=== PATIENT | female | born 1950 | race Caucasian/White ===

== ENCOUNTER 2018-12-12 13:40 | Emergency (ER) | payer MEDICARE ==
[~2018-12-12] VITALS: Ht 165.1 cm; Wt 86.2 kg
[~2018-12-12 13:40] MED LIST: BENAZEPRIL HCL10 MG PO; CALTRATE 600+D1 EACH PO; LIPITOR PO; MULTIVITAMIN PO; PAXIL CR25 MG PO
[2018-12-12] MEDS ORDERED: TESSALON PERLE100 MG PO (13:58)
[2018-12-12] MEDS ORDERED: VENTOLIN HFA18 GM INH (13:58)
[2018-12-12] MEDS ORDERED: DOXYCYCLINE HY100 MG PO (13:58)
[2018-12-12] MEDS ORDERED: PREDNISONE20 MG PO (13:58)
[2018-12-12] MEDS ORDERED: ALBUTEROL/IPRATROPIUM 3 ML NEB NEB ONE (14:00)
--- NOTE | 2018-12-12 14:09 | Diagnostic Imaging Report ---
EXAMINATION: PA and lateral views of the chest. COMPARISON: None CLINICAL HISTORY: Cough and congestion x1 week DISCUSSION: Lines/tubes: None. Lungs: The lungs are well inflated and clear. There is no evidence of pneumonia or pulmonary edema. Pleura: There is no pleural effusion or pneumothorax. Heart and mediastinum: The cardiomediastinal silhouette is normal. Bones and soft tissues: No acute bony abnormalities. Degenerative changes in the thoracic spine IMPRESSION: No acute cardiopulmonary abnormalities. Signed by: Dr. Giorgio Damon M.D. on 12/12/2018 2:06 PM
== END 2018-12-12 14:36 | disposition home or self-care (01) ==
LOC: FSED 13:40
DX: R05 Cough (principal); J20.9 Acute bronchitis, unspecified
CPT/HCPCS: 71046; 99283

== ENCOUNTER → 2019-07-31 | Outpatient (CLI) | payer MEDICARE ==
[~2019-07-31] MED LIST changes: +DOXYCYCLINE HY100 MG PO; +PREDNISONE20 MG PO; +TESSALON PERLE100 MG PO; +VENTOLIN HFA18 GM INH
--- NOTE | 2019-08-01 09:38 | Diagnostic Imaging Report ---
EXAMINATION: HIP RIGHT 2-3 VW (+/- PELVIS) INDICATION: Right hip pain COMPARISON: None FINDINGS: AP and frog-leg views of the right hip demonstrate no acute fracture or dislocation. Mild degenerative changes of the right hip joint. IMPRESSION: No acute osseous injury. Mild right hip degenerative changes. Signed by: Mary Gibbs MD on 08/01/2019 9:35 AM
--- NOTE | 2019-08-01 09:40 | Diagnostic Imaging Report ---
EXAMINATION: SP LUMBAR, COMPLETE MIN 4VW INDICATION: Back pain COMPARISON: None FINDINGS: AP, lateral, and oblique images of the lumbar spine were obtained. No compression fracture. Vertebral body heights are well maintained. Grade 1 anterolisthesis at L5-S1. Grade 1 retrolisthesis at L2-3. Mild multilevel degenerative changes with disc space narrowing and small osteophyte formation and facet arthropathy. Nonobstructive bowel gas pattern. No free air. Phleboliths in the pelvis. IMPRESSION: No compression fracture. Mild multilevel degenerative changes and alignment abnormalities as above. Signed by: Mary Gibbs MD on 08/01/2019 9:37 AM
== END ==
LOC: RAD 16:09
DX: M25.551 Pain in right hip (principal); M54.5 Low back pain
CPT/HCPCS: 72110